=== PATIENT | female | born 1945 | race Caucasian/White ===

== ENCOUNTER → 2019-06-03 | Day surgery (SDC) | payer MEDICARE, OTHER ==
[~2019-06-03] MED LIST: Acetaminophen TAB* 325 MG ONE; Buffered Lidocaine 1% SYRIN* 1 ML/SYRINGE INTRADERM ONE; Bupivacaine 0.25% SDV PF* 10 ML VIAL INJ ONE; Ibuprofen TAB* 600 MG ONE; Lactated Ringers 1000 ML Bag* 1,000 ML IV SCH; Lidocaine 2% PF * 5 ML VIAL ONE; Naloxone* 0.4 MG/ML 1 ML VIAL IV PRN; Ondansetron INJ* 2 MG/ML VIAL IV PRN; Propofol* 10 MG/ML 20 ML BTL ONE; ROPIVACAINE 5 MG/ML 30 ML BTL (0.5%) ONE; Sodium Citrate/Citric Acid* 15 ML UDC ONE; Sodium Citrate/Citric Acid* 15 ML UDC PO ONE; ceFAZolin 2 GM in NS PREMIX(*) 2 GM/100 ML BAG IVPB ONE; fentaNYL* 50 MCG/ML 2 ML VIAL (100 MCG VIAL) IV PRN; fentaNYL* 50 MCG/ML 2 ML VIAL (100 MCG VIAL) ONE
--- NOTE | 2019-06-03 14:36 | OP ---
Operative Report - Blank - Operative Report Date of Operation: 06/03/19 Note: PATIENT: Fani Peñaloza DATE OF : 1945 DATE OF SURGERY: 06/03/2019 SURGEON: Jarad Brewster MD POLY PACKER AND HEAT SEALER: TINY Downey, whos assistance was necessary for positioning, retraction, help with instrumentation, and closure. ANESTHESIOLOGIST: Dr. Davidson PREOPERATIVE DIAGNOSIS: Left foot first, second and third painful, rigid claw toes POSTOPERATIVE DIAGNOSIS: Left foot first, second and third painful, rigid claw toes OPERATION: 1. Left hallux interphalangeal joint fusion 2. Left 2nd and 3rd claw corrections with PIP resection arthroplasties ANESTHESIA: General IMPLANTS: Arthrex 4.0mm cannulated screw, 0.045 k-wires x2 TOURNIQUET TIME: Less than 1 hour with a sterile calf tourniquet SPECIMENS: none ESTIMATED BLOOD LOSS: minimal COMPLICATIONS: none STATUS: Stable from the operating room to the recovery room and then home INDICATIONS FOR PROCEDURE: Fani has developed painful, rigid 1-3 claw toes on the left foot. Both operative and non-operative treatment alternatives were reviewed. Further, the nature and risks of surgery were reviewed in careful detail. Our discussions regarding the risks of surgery included, but were not limited to, infection, wound problems, nerve injury, neuroma, RSD, persistent symptoms, recurrent deformity, floating toe, nonunion, malunion, fracture, loss of toe, blood clot, need for further surgery, failure of the surgery, and even the remote chance of catastrophic complication, including loss of limb. DESCRIPTION OF PROCEDURE: The patient was seen in the preoperative holding unit and informed written consent was obtained. The appropriate extremity was marked. The patient was then brought to the operating room and carefully positioned on the operating room table. Anesthesia was induced. All bony prominences were padded with great care. A chlorhexidine based pre-scrub was performed followed by a chloraprep prep and drape in standard sterile fashion. A surgical safety pause was then conducted in which we confirmed the appropriate patient, extremity, planned procedure, availability of equipment, indication and administration of prophylactic antibiotics, and DVT prophylaxis in the form of a compression boot on the non-surgical extremity. I began with an Esmarch exsanguination of limb and placement of a calf Esmarch tourniquet. I made an incision over the hallux IP joint. I exposed the joint in a subperiosteal manner. I then used a small oscillating saw blade to remove the distal end of the proximal phalanx and the proximal end of the distal phalanx. I then placed a 4.0 mm cannulated screw across the joint to hold it well fixed. There was good bone apposition. An incision was made over the 2nd toe PIP joint and taken down to the level of bone and joint. The collateral ligaments were released on both sides. I then used a small oscillating saw to osteotomize the distal aspect of the proximal phalanx. This was then excised. I then placed a 0.045 K wire through the toe in an antegrade/retrograde fashion. The resection and pin placement was then confirmed with fluoroscopy. The toe sat nice and straight clinically. An incision was made over the 3rd toe PIP joint and taken down to the level of bone and joint. The collateral ligaments were released on both sides. I then used a small oscillating saw to osteotomize the distal aspect of the proximal phalanx. This was then excised. I then placed a 0.045 K wire through the toe in an antegrade/retrograde fashion. The resection and pin placement was then confirmed with fluoroscopy. The toe sat nice and straight clinically. The wounds were then copiously irrigated and meticulously closed in layers utilizing 3-0 Monocryl and 4-0 Nylon. A sterile dressing was then applied. The patient was then awakened from anesthesia and transferred to the recovery room in stable condition. There were no complications. All needle and sponge counts were correct at the end of the case. ATTESTATION: I attest I was present and scrubbed and performed the critical portions of the procedure myself. POSTOPERATIVE PLAN: Heel weightbearing and we will plan on 6 weeks with the k- wire.
[2019-06-03 15:58] VITALS: BP 154/77
== END | disposition home or self-care (01) ==
LOC: OR 10:18
PROVIDERS: ATTEND Orthopaedic Surgery
DX: M20.5X2 Other deformities of toe(s) (acquired), left foot (principal); Z68.35 Body mass index [BMI] 35.0-35.9, adult; E03.9 Hypothyroidism, unspecified; G20 Parkinson's disease; R03.0 Elevated blood-pressure reading, without diagnosis of hypertension
CPT/HCPCS: 76000; A9270-GY; C1713; C1776; J0690; J2704; J2795; J3010; J3490

== ENCOUNTER 2019-10-18 15:33 | Inpatient (IN) | payer MEDICARE ==
[2019-10-18] MEDS ORDERED: Ondansetron ODT TAB* 4 MG PO PRN (15:35)
[2019-10-18] MEDS ORDERED: Ondansetron INJ* 2 MG/ML VIAL IV PRN (15:35)
[2019-10-18] MEDS ORDERED: Morphine INJ* 2 MG/ML 1 ML SYRINGE (TWO MG - NEW SYRINGE VERSION) IV PRN (15:35)
[2019-10-18] MEDS ORDERED: diPHENhydraMINE PO* 25 MG PO PRN (15:35)
[2019-10-18] MEDS ORDERED: diPHENhydraMINE IV* 50 MG/ML 1 ml VIAL (BENADRYL) IV PRN (15:35)
[2019-10-18] MEDS ORDERED: oxyCODONE TAB* 5 MG TAB PO PRN ×2 (15:35)
[2019-10-18] MEDS ORDERED: Cyclobenzaprine TAB* 10 MG PO PRN (15:35)
[2019-10-18] MEDS ORDERED: traMADol TAB* 50 MG PO PRN (15:35)
[2019-10-18] MEDS ORDERED: Magnesium Hydroxide LIQ* 30 ML UDC PO PRN (15:35)
[2019-10-18] MEDS ORDERED: Vancomycin per Pharmacy* NOTE FOLLOW UP SCH (16:00)
--- OUTSIDE RECORDS SUMMARY | 2019-10-18 16:17 | XMS REPORT | Continuity of Care Document ---
:1945 External Reference #:[id number] Author Name Jarad Brewster MD (transmitted by agent of provider Dionne Perez) Address [address] [place] [address] Care Team Providers Name Role Phone No Maloney DO - Internal Care Team Information Workers Compensation Analyst [phone] Medicine Problems Active Problems Provider Date Cellulitis of left lower limb Jarad Brewster MD Onset: 10/18/2019 Pain due to internal orthopedic prosthetic Jarad Brewster MD Onset: 2019 devices, implants and grafts, initial encounter Other specified congenital deformities of feet Jarad Brewster MD Onset: 05/03 Social History Type Date Description Comments Sex Unknown ETOH Use Rarely consumes alcohol Tobacco Use Start: Unknown Patient has never smoked Smoking Status Reviewed: 10/18/19 Patient has never smoked Exercise Type/Frequency Exercises sporadically Allergies, Adverse Reactions, Alerts Active Allergies Reaction Severity Comments Date Nalbuphine 05/03/2019 Butorphanol 05/03/2019 Medications Active Medications SIG Qnty Indications Ordering Provider Date Duloxetine HCL Take 1 Capsule Unknown 30mg Caps DR By Mouth Every Part Day Pramipexole Take 1 Tablet By Unknown Dihydrochloride Mouth Twice 0.5mg Tablets Daily Celecoxib Unknown 100mg Capsules Gabapentin Unknown 300mg Capsules Carbidopa-Levodopa Take 1 Tablet By Unknown 25-100mg Mouth Three Tablets Times Daily Stool Softener Unknown History Medications Keflex 1 tab by mouth 28caps Jarad Brewster MD 06/16/2019 - 500mg Capsules four times a day 08/10/2019 Oxycodone HCL 1 tab by mouth 30tabs Jarad Brewster MD 06/03/2019 - 5mg every 4-6 hours 08/10/2019 Tablets as needed for pain Immunizations Description No Information Available Vital Signs Date Vital Result Comment 10/18/2019 2:40pm Height 68 inches 5'8" Heart Rate 70 /min BP Systolic 140 mmHg BP Diastolic 80 mmHg Respiratory Rate 20 /min Body Temperature 97.3 F Pain Level 5 08/11/2019 2:50pm Height 68 inches 5'8" Weight 230.00 lb Heart Rate 69 /min Respiratory Rate 18 /min Body Temperature 97.8 F Pain Level 0 BMI (Body Mass Index) 35.0 kg/m2 Results Description No Information Available Procedures Date Code Description Status 06/03/2019 98942 Arthrodesis Great Toe IP JT Completed 06/03/2019 64462 Arthrodesis Great Toe IP JT Completed 06/03/2019 82020 Correction Hammertoe Completed 06/03/2019 04490 Correction Hammertoe Completed 06/03/2019 04203 Correction Hammertoe Completed 06/03/2019 20143 Correction Hammertoe Completed Medical Devices Description No Information Available Encounters Type Date Location Provider Dx Diagnosis Office Visit 05/03/2019 [facility] Jarad Brewster, M21.532 Acquired 3:00p at [place] clawfoot, left foot Assessments Date Code Description Provider 10/18/2019 T84.84xA Pain due to internal orthopedic prosthetic Jarad Brewster MD devices, implants and grafts, initial encounter 10/18/2019 L03.116 Cellulitis of left lower limb Jarad Brewster MD 08/11/2019 M20.5x2 Other deformities of toe(s) (acquired), left Jarad Brewster MD foot 08/11/2019 M21.532 Acquired clawfoot, left foot Jarad Brewster MD 07/16/2019 M20.5x2 Other deformities of toe(s) (acquired), left Jarad Brewster MD foot 07/16/2019 M21.532 Acquired clawfoot, left foot Jarad Brewster MD 06/23/2019 M20.5x2 Other deformities of toe(s) (acquired), left Jarad Brewster MD foot 06/23/2019 Z98.890 Other specified postprocedural states Jarad Brewster MD 06/16/2019 M20.5x2 Other deformities of toe(s) (acquired), left Jarad Brewster MD foot 06/16/2019 M21.532 Acquired clawfoot, left foot Jarad Brewster MD 06/16/2019 Z98.890 Other specified postprocedural states Jarad Brewster MD 06/03/2019 M20.5x2 Other deformities of toe(s) (acquired), left ANTIONETTE Downey foot 06/03/2019 M20.5x2 Other deformities of toe(s) (acquired), left Jarad Brewster MD foot 05/28/2019 M21.532 Acquired clawfoot, left foot Jarad Brewster MD 05/03/2019 M21.532 Acquired clawfoot, left foot Jarad Brewster MD Plan of Treatment Future Appointment(s):10/21/2019 4:15 pm - ANTIONETTE Downey at [facility] at [facility]/21/2019 4:15 pm - Jarad Brewster MD at [facility] at [facility]/18/2019 - Jarad Brewster MDT84.84xA Pain due to internal orthopedic prosthetic devices, implants and grafts, initial encounterFollow up:Follow Up: hospital nuarfF10.116 Cellulitis of left lower limb Functional Status Description No Information Available Mental Status Description No Information Available Referrals Description No Information Available
--- OUTSIDE RECORDS SUMMARY | 2019-10-18 16:18 | XMS REPORT | Summary of Care ---
:1945 Author Organization [facility] Address [address] [place] [address] Care Team Providers Name Role Phone No Maloney MD Primary Care Provider Reason for Visit Reason Comments New Patient Per Dr. Matthew, Acute Kidney injury, decreased kidney function. Encounter Details Date Type Department Care Team Description 09/17/2019 Office Visit [facility] Fermin Paris, LAURA (acute kidney injury) ([facility]) (Primary Dx); [address] Fuentes DO Non-traumatic rhabdomyolysis; [place] [address] Osteoarthritis, unspecified osteoarthritis type, unspecified site; [phone] [place] [address] Parkinson's disease ([facility]) [phone] Allergies Active Allergy Reactions Severity Noted Date Comments Cefoxitin Other High 04/19/2015 thrombocytopenia Latex Rash 04/19/2015 Wkvjbazoqj-Yeoulzpkbf-Dcatskuwwy Other High 04/19/2015 thrombocytopenia Phenergan Plain Other High 04/19/2015 thrombocytopenia Butorphanol Other High 04/19/2015 thrombocytopenia Zantac Other High 04/19/2015 thrombocytopenia documented as of this encounter (statuses as of 09/17/2019) Medications Medication Sig Dispensed Refills Start Date End Date Status pramipexole (MIRAPEX) Take 0.5 mg by 0 Active 0.5 MG Oral Tab mouth EVERY BEDTIME. levothyroxine Take 2 Tabs by 180 Tab 5 11/20/2017 Active (SYNTHROID) 112 MCG Oral mouth BEFORE Tab BREAKFAST. Wait 30 min before eating Additional information Patient taking differently: 175 mcg Oral PRE BREAKFAST, Wait 30 min before eating, Reported on 09/17/2019 11:01 AM acetaminophen (TYLENOL) Take 2 Tabs by 120 Tab 0 03/11/2018 Active 325 MG Oral Tab mouth EVERY FOUR HOURS NEEDED for Pain or Fever. sennosides (SENOKOT) 8.6 Take 1 Tab by 120 Tab 0 03/11/2018 Active MG Oral Tab mouth TWICE DAILY. duloxetine (CYMBALTA) 30 Take 1 Cap by 60 Cap 0 03/11/2018 Active MG Oral CAPSULE ENTERIC mouth DAILY. COATED PARTICLES pantoprazole (PROTONIX) Take 40 mg by 0 Active 40 MG Oral Tab EC mouth DAILY. quetiapine (SEROQUEL) 25 Take 25 mg by 0 Active MG Oral Tab mouth EVERY BEDTIME. metoprolol (LOPRESSOR) Take 50 mg by 0 Active 50 MG Oral Tab mouth TWICE DAILY. cephalexin discharge Take 500 mg by 0 Active (KEFLEX) 500 MG Oral Cap mouth TWICE DAILY. carbidopa-levodopa Take 1 Tab by 0 Active (SINEMET) 25-100 MG Oral mouth THREE TIMES Tab DAILY. mirtazapine (REMERON) 15 Take 15 mg by 0 Active MG Oral Tab mouth EVERY BEDTIME. gabapentin (NEURONTIN) Take 300 mg by 0 09/17/2019 Discontinued 100 MG Oral mouth THREE TIMES CapIndications: DAILY. Insomnia, nerve pain celeCOXIB (CELEBREX) 100 Take 1 Cap by 120 Cap 0 03/11/2018 09/17/2019 Discontinued MG Oral Cap mouth TWICE DAILY. Melatonin 3 MG Oral Cap Take by mouth. 0 09/17/2019 Discontinued documented as of this encounter (statuses as of 09/17/2019) Active Problems Problem Noted Date Parkinson's disease 04/18/2018 Adult failure to thrive syndrome 04/18/2018 Hospital admission due to social situation 04/18/2018 Thoracic compression fracture, sequela 04/18/2018 Anxiety and depression Secondary hypothyroidism Overview: following thyroidectomy Lumbar spinal stenosis documented as of this encounter (statuses as of 09/17/2019) Resolved Problems Problem Noted Date Resolved Date Parkinson disease 03/10/2018 04/18/2018 Spinal stenosis at L4-L5 level 03/10/2018 04/18/2018 Weakness of both lower extremities 03/10/2018 04/18/2018 Compression fracture of body of thoracic vertebra 03/09/2018 04/18/2018 Back pain 03/09/2018 04/18/2018 Parkinson disease 09/22/2013 04/18/2018 Obesity 04/18/2018 Peripheral neuropathy 04/18/2018 documented as of this encounter (statuses as of 09/17/2019) Social History Tobacco Use Types Packs/Day Years Used Date Never Smoker Smokeless Tobacco: Never Used Alcohol Use Drinks/Week oz/Week Comments Yes rarely Sex Assigned at Date Recorded Not on file Job Start Date Occupation Industry Not on file Not on file Not on file Travel History Travel Start Travel End No recent travel history available. documented as of this encounter Last Filed Vital Signs Vital Sign Reading Time Taken Comments Blood Pressure 132/76 09/17/2019 11:05 AM EST Pulse 50 09/17/2019 11:05 AM EST Temperature - - Respiratory Rate - - Oxygen Saturation 98% 09/17/2019 11:05 AM EST Inhaled Oxygen Concentration - - Weight 116.6 kg (257 lb) 09/17/2019 11:05 AM EST Height 172.7 cm (5' 8") 09/17/2019 11:05 AM EST Body Mass Index 39.08 09/17/2019 11:05 AM EST documented in this encounter Progress Notes Fermin Paris, DO - 09/17/2019 10:50 AM EST PATIENT: Fani Peñaloza : 1945 DATE OF SERVICE: 09/17/2019 CHIEF COMPLAINT: Chief Complaint Patient presents with New Patient Per Dr. Matthew, Acute Kidney injury, decreased kidney function. Subjective HISTORY OF PRESENT ILLNESS: Fani Peñaloza is a 73-y.o. female. HPI 73-year-old female presenting for evaluation of acute kidney injury. The patient was recently founddown at home and was hospitalized [facility] at [facility]. She was found to have acute kidney injury with a creatinine of over 3 and a CK level of greater than 20,000. She was treated with IV fluids approximately 16 to 17 L of isotonic fluids was provided to her. She had some mild volume overload at the time. Her creatinine level had continue to worsen and that is when she was referred to nephrology for evaluation. Reviewing her creatinine levels over the last week she has had a steady decline in her creatinine from 3.1 down to 2.0 mg/dL on September 13, 2019. Her fluid status is also improved per the patient. Patient has a past medical history of anxiety, Parkinson's disease, hypothyroidism status post complete thyroidectomy, osteoarthritis, obesity. Denies sob, rashes, hematuria, dysuria, tissue passage, flank pain, epistaxis, hoarseness, hemoptysis, abdominal pain, orthopnea, PND, CP, N/V, metallic taste, positional chest pain, LE edema, generalized edema, headache, change in vision, or neuro deficits. Past Medical History: Diagnosis Date Anxiety and depression History of hyperthyroidism s/p complete thyroidectomy Lumbar spinal stenosis Obesity Parkinson disease (HCC) 2013 Secondary hypothyroidism following thyroidectomy Family History Problem Relation Age of Onset MS Mother Cancer Father stomach. age 47 Diabetes Sister No Known Problems Daughter No Known Problems Son Current Outpatient Medications Medication Sig acetaminophen (TYLENOL) 325 MG Oral Tab Take 2 Tabs by mouth EVERY FOUR HOURS NEEDED for Pain or Fever. carbidopa-levodopa (SINEMET) 25-100 MG Oral Tab Take 1 Tab by mouth THREE TIMES DAILY. cephalexin discharge (KEFLEX) 500 MG Oral Cap Take 500 mg by mouth TWICE DAILY. duloxetine (CYMBALTA) 30 MG Oral CAPSULE ENTERIC COATED PARTICLES Take 1 Cap by mouth DAILY. levothyroxine (SYNTHROID) 112 MCG Oral Tab Take 2 Tabs by mouth BEFORE BREAKFAST. Wait 30 minbefore eating (Patient taking differently: Take 175 mcg by mouth BEFORE BREAKFAST. Wait 30 min before eating) metoprolol (LOPRESSOR) 50 MG Oral Tab Take 50 mg by mouth TWICE DAILY. mirtazapine (REMERON) 15 MG Oral Tab Take 15 mg by mouth EVERY BEDTIME. pantoprazole (PROTONIX) 40 MG Oral Tab EC Take 40 mg by mouth DAILY. pramipexole (MIRAPEX) 0.5 MG Oral Tab Take 0.5 mg by mouth EVERY BEDTIME. quetiapine (SEROQUEL) 25 MG Oral Tab Take 25 mg by mouth EVERY BEDTIME. sennosides (SENOKOT) 8.6 MG Oral Tab Take 1 Tab by mouth TWICE DAILY. No current facility-administered medications for this visit. Allergies Allergen Reactions Cefoxitin Other thrombocytopenia Nubain [Psnybibxim-Louwsscqxn-Ikyojznctr] Other thrombocytopenia Phenergan Plain Other thrombocytopenia Stadol [Butorphanol] Other thrombocytopenia Zantac Other thrombocytopenia Latex Rash Social History Socioeconomic History Marital status: Spouse name: Not on file Number of children: Not on file Years of education: Not on file Highest education level: Not on file Occupational History Not on file Social Needs Financial resource strain: Not on file Food insecurity Worry: Not on file Inability: Not on file Transportation needs Medical: Not on file Non-medical: Not on file Tobacco Use Smoking status: Never Smoker Smokeless tobacco: Never Used Substance and Sexual Activity Alcohol use: Yes Comment: rarely Drug use: No Sexual activity: Never Lifestyle Physical activity Days per week: Not on file Minutes per session: Not on file Stress: Not on file Relationships Social connections Talks on phone: Not on file Gets together: Not on file Attends scientologist service: Not on file Active member of club or organization: Not on file Attends meetings of clubs or organizations: Not on file Relationship status: Not on file Intimate partner violence Fear of current or ex partner: Not on file Emotionally abused: Not on file Physically abused: Not on file Forced sexual activity: Not on file Other Topics Concern Not on file Social History Narrative Not on file REVIEW OF SYSTEMS: Review of Systems Constitutional: Negative for chills, fever, malaise/fatigue and weight loss. HENT: Negative for congestion, nosebleeds, sinus pain, sore throat and tinnitus. Eyes: Negative for blurred vision, double vision and redness. Respiratory: Negative for cough, hemoptysis and shortness of breath. Cardiovascular: Negative for chest pain, palpitations, orthopnea, claudication, leg swelling and PND. Gastrointestinal: Negative for abdominal pain, blood in stool, constipation, diarrhea, heartburn, melena, nausea and vomiting. Genitourinary: Negative for dysuria, flank pain, hematuria and urgency. Musculoskeletal: Negative for myalgias and neck pain. Skin: Negative for itching and rash. Neurological: Negative for dizziness, tremors, focal weakness, weakness and headaches. Endo/Heme/Allergies: Negative for polydipsia. Does not bruise/bleed easily. Psychiatric/Behavioral: Negative for depression. The patient is not nervous/ anxious. Objective PHYSICAL EXAM: VITALS: BP 132/76 (BP Location: Left arm, Patient Position: Sitting) | Pulse 50 | Ht 5' 8" (1.727m) | Wt 257 lb (116.6 kg) | SpO2 98% | BMI 39.08 kg/m Body mass index is 39.08 kg/m. Physical Exam Constitutional: General: She is not in acute distress. Appearance: She is well-developed. HENT: Head: Normocephalic and atraumatic. Eyes: General: No scleral icterus. Conjunctiva/sclera: Conjunctivae normal. Pupils: Pupils are equal, round, and reactive to light. Neck: Musculoskeletal: Neck supple. Vascular: No JVD. Cardiovascular: Rate and Rhythm: Normal rate and regular rhythm. Heart sounds: No murmur. No friction rub. No gallop. Pulmonary: Effort: Pulmonary effort is normal. Breath sounds: No wheezing or rales. Chest: Chest wall: No tenderness. Abdominal: General: Bowel sounds are normal. There is no distension. Palpations: Abdomen is soft. Tenderness: There is no abdominal tenderness. There is no guarding or rebound. Musculoskeletal: General: No tenderness. Skin: Capillary Refill: Capillary refill takes less than 2 seconds. Coloration: Skin is not pale. Findings: No rash. Neurological: Mental Status: She is alert and oriented to person, place, and time. Comments: Non--focal, no asterixis, pill rolling tremor ASSESSMENT / IMPRESSION: 73-year-old female presenting for evaluation of acute kidney injury secondary to rhabdomyolysis after being found down on the ground for greater than 10 hours. Her creatinine level is improving. Recommend weekly renal panels for 4 weeks and then once monthly for 3 months. I will evaluate her once again in approximately 8 to 10 weeks in [place]. Need to see what her kidney function settles out outat 3 months post identification of acute kidney injury to see there is any residual chronic kidney disease that is present. ICD-9-CM ICD-10-CM 1. LAURA (acute kidney injury) ([facility]) 584.9 N17.9 RENAL FUNCTION PANEL 2. Non-traumatic rhabdomyolysis 728.88 M62.82 3. Osteoarthritis, unspecified osteoarthritis type, unspecified site 715.90 M19.90 4. Parkinson's disease ([facility]) 332.0 G20 Plan 1. Weekly renal panel x4 weeks, followed by monthly renal panels x3 months 2. Renally adjust Rx for current creatinine clearance given her improving kidney function 3. Avoid NSAIDs and other nephrotoxic agents 4. continue current antihypertensive regimen 5. Low-sodium less than 2000 mg/day diet Follow-up in 8 to 10 weeks in [place]. Author: Fermin Paris DO 09/17/2019 11:30 documented in this encounter Plan of Treatment Date Type Specialty Care Team Description 12/07/2019 Office Visit Nephrology Fermin Paris DO [address] [place] [address] [phone] Name Type Priority Associated Diagnoses Order Schedule RENAL FUNCTION PANEL Lab Routine LAURA (acute kidney injury) Every 4 Weeks for 6 (HCC) Occurrences starting 09/17/2019 until 09/17/2020 Health Maintenance Due Date Last Done Comments MEDICARE ANNUAL WELLNESS VISIT 1945 DTaP/Tdap/Td Vaccines (1 - 1957 Tdap) DEPRESSION SCREENING 1958 HIV SCREENING 1961 MAMMOGRAM (SCREENING) 1986 Colonoscopy 1996 ZOSTER IMMUNIZATION SERIES (1 1996 of 2) FALL RISK ASSESSMENT 2011 OSTEOPOROSIS SCREENING 2011 PNEUMOCOCCAL 65+YRS (1 of 2 - 2011 PCV13) INFLUENZA VACCINE (#1) 2019 LIPID DISORDER SCREENING 11/14/2022 11/14/2017, 01/18/2004, 12/21/2002 HEPATITIS C SCREENING Completed 03/11/2018 HEPATITIS A IMMUNIZATION Aged Out No longer eligible based SERIES on patient's age to complete this topic HPV IMMUNIZATION SERIES Aged Out No longer eligible based on patient's age to complete this topic MENINGOCOCCAL VACCINE IMM Aged Out No longer eligible based on patient's age to complete this topic documented as of this encounter Results Not on filedocumented in this encounter Visit Diagnoses Diagnosis LAURA (acute kidney injury) (HCC) Acute kidney failure, unspecified Non-traumatic rhabdomyolysis Osteoarthritis, unspecified osteoarthritis type, unspecified site Parkinson's disease (HCC) Paralysis agitans documented in this encounter Insurance Payer Benefit Plan / Subscriber ID Effective Dates Phone Address Type Group UHC MEDICARE [employer] xxxxxxxxx 2016-Present [facility] AD[facility] MEDICARE ADVANTAGE (Work) documented as of this encounter Advance Directives Code Status Date Activated Date Inactivated Comments Full Code 03/09/2018 3:55 PM 03/11/2018 3:44 PM Does patient have decision making capacity? yes Order discussed with: Patient I discussed all options and patient/surrogate requested and agreed to: Full Code
[2019-10-18 17:05] LABS: ABS Eosinophils 0.1 10^3/ul (0-0.6); ABS Lymphocytes 1.2 10^3/ul (1.0-4.8); ABS Monocytes 0.4 10^3/ul (0-0.8); Eosinophil % 2.2 %; Hematocrit 32 % (35-47); Hemoglobin 10.9 g/dL (12.0-16.0); Lymphocyte % 20.4 %; Mean Corpuscular HGB Conc 34 g/dL (31-36); Mean Corpuscular Hemoglobin 32 pg (27-31); Mean Corpuscular Volume 94 fL (80-97); Mean Platelet Volume 6.8 fL (7.4-10.4); Nucleated Red Blood Cells % 0.1; Platelet Count 281 10^3/uL (150-450); Red Blood Count 3.41 10^6 /uL (3.70-4.87); Red Cell Distribution Width 14 % (10-15); White Blood Count 5.8 10^3/uL (3.5-10.8)
[2019-10-18 17:22] LABS: EGFR African American 69.1 (>60); EGFR Non-African American 57.1 (>60); Potassium 4.2 mmol/L (3.5-5.0)
[2019-10-18] MEDS: Acetaminophen TAB* 325 MG PO SCH (17:28)
[2019-10-18] MEDS ORDERED: Vancomycin 1500 MG IV - x ONCE IVPB ONE ×2 (18:00)
[2019-10-18 18:16] LABS: Erythrocyte Sed Rate 29 mm/Hr (0-29)
[2019-10-18] MEDS: Pramipexole TAB* 0.5 MG PO SCH (21:20)
[2019-10-18] MEDS: Docusate CAP* 100 MG PO SCH (21:20)
[2019-10-18] MEDS: Magnesium Hydroxide LIQ* 30 ML UDC PO SCH (21:21)
[2019-10-18] MEDS: Heparin VIAL(*) 5000 UNITS/ML VIAL (FIVE THOUSAND) SUBCUT SCH (21:21)
[2019-10-19] MEDS: Vancomycin(*) 1,000 MG in NS 0.9% 250 ML* 250 ML IV SCH ×3 (01:52→22:12)
[2019-10-19] MEDS: Acetaminophen TAB* 325 MG PO SCH ×3 (01:55→17:44)
[2019-10-19] MEDS: Levothyroxine TAB* 100 MCG TAB PO SCH (05:58)
[2019-10-19] MEDS: Gabapentin CAP(*) 300 MG PO SCH (08:37)
[2019-10-19] MEDS: DULoxetine DR CAP* 30 MG CAP.DR PO SCH (08:37)
[2019-10-19] MEDS: Pramipexole TAB* 0.5 MG PO SCH ×2 (08:37→22:11)
[2019-10-19] MEDS: Magnesium Hydroxide LIQ* 30 ML UDC PO SCH ×2 (08:41→22:11)
[2019-10-19] MEDS: Vitamin THERAPEUTIC TAB PO SCH (08:41)
[2019-10-19] MEDS: Heparin VIAL(*) 5000 UNITS/ML VIAL (FIVE THOUSAND) SUBCUT SCH ×2 (08:41→22:11)
[2019-10-19] MEDS: Docusate CAP* 100 MG PO SCH ×2 (08:42→22:11)
--- NOTE | 2019-10-19 10:26 | PN ---
Progress Note - Progress Note Date of Service: 10/19/19 SOAP: Subjective: []Pt seen at bedside. She denies feeling of cp, sob, dizziness, nausea. No LLE pain. Objective: []Gen: NAD LLE: Screw exposed from distal tip of great toe. Erythema spans mid-calf distally. There is a dime sized lesion mid-martinez weaping serous drainage. Able to flex/ extend ankle without pain. Sensation intact to light touch and cap refill less than two seconds distally. No palpable cords. Assessment: []Left great toe exposed hardware, cellulitis LLE Plan: []Heel WB LLE MICHA garza consulted for abx guidance Dopplar without evidence of lle DVT Plan for OR Vital Signs Temp 98.8 F 10/19/19 07:44 Pulse 83 10/19/19 07:44 Resp 16 10/19/19 08:37 BP 143/69 10/19/19 07:44 Pulse Ox 99 10/19/19 07:44 Intake & Output 10/18/19 10/19/19 10/19/19 18:59 06:59 18:59 Intake Total 1075 Output Total 250 350 Balance 825 -350 Weight 250 lb Intake: IVPB 575 ABX - PIPERACILLIN 575 Oral 500 Output: Urine 250 350 Other: Estimated Void Medium Large # Bowel Movements 0 # Voids 1 1 Laboratory Last Values WBC 5.8 10^3/uL (3.5-10.8) 10/18/19 16:58 RBC 3.41 10^6 /uL (3.70-4.87) L 10/18/19 16:58 Hgb 10.9 g/dL (12.0-16.0) L 10/18/19 16:58 Hct 32 % (35-47) L 10/18/19 16:58 MCV 94 fL (80-97) 10/18/19 16:58 MCH 32 pg (27-31) H 10/18/19 16:58 MCHC 34 g/dL (31-36) 10/18/19 16:58 RDW 14 % (10-15) 10/18/19 16:58 Plt Count 281 10^3/uL (150-450) 10/18/19 16:58 MPV 6.8 fL (7.4-10.4) L 10/18/19 16:58 Neut % (Auto) 69.1 % 10/18/19 16:58 Lymph % (Auto) 20.4 % 10/18/19 16:58 [place] % (Auto) 7.6 % 10/18/19 16:58 Eos % (Auto) 2.2 % 10/18/19 16:58 Baso % (Auto) 0.7 % 10/18/19 16:58 Absolute Neuts (auto) 4.0 10^3/ul (1.5-7.7) 10/18/19 16:58 Absolute Lymphs (auto) 1.2 10^3/ul (1.0-4.8) 10/18/19 16:58 Absolute Monos (auto) 0.4 10^3/ul (0-0.8) 10/18/19 16:58 Absolute Eos (auto) 0.1 10^3/ul (0-0.6) 10/18/19 16:58 Absolute Basos (auto) 0.0 10^3/ul (0-0.2) 10/18/19 16:58 Absolute Nucleated RBC 0.0 10^3/ul 10/18/19 16:58 Nucleated RBC % 0.1 10/18/19 16:58 ESR 29 mm/Hr (0-29) 10/18/19 16:58 INR (Anticoag Therapy) 1.00 (0.82-1.09) 10/18/19 16:58 Sodium 138 mmol/L (135-145) 10/18/19 16:58 Potassium 4.2 mmol/L (3.5-5.0) 10/18/19 16:58 Chloride 105 mmol/L (101-111) 10/18/19 16:58 Carbon Dioxide 29 mmol/L (22-32) 10/18/19 16:58 Anion Gap 4 mmol/L (2-11) 10/18/19 16:58 BUN 25 mg/dL (6-24) H 10/18/19 16:58 Creatinine 0.96 mg/dL (0.51-0.95) H 10/18/19 16:58 Est GFR ( Amer) 69.1 (>60) 10/18/19 16:58 Est GFR (Non-Af Amer) 57.1 (>60) 10/18/19 16:58 BUN/Creatinine Ratio 26.0 (8-20) H 10/18/19 16:58 Glucose 103 mg/dL (70-100) H 10/18/19 16:58 Calcium 10.0 mg/dL (8.6-10.3) 10/18/19 16:58 C-Reactive Protein 8.12 mg/L (<8.01) H 10/19/19 04:39
--- NOTE | 2019-10-19 14:37 | CONS ---
CONSULTATION REPORT: DATE OF ADMISSION: 10/18/19 DATE OF CONSULT: 10/19/19 PRIMARY CARE PROVIDER: Dr. No Maloney. PROVIDER REQUESTING CONSULTATION: TINY Durna CONSULTING SERVICE: Infectious Disease. PROVIDER: Yamil Rodriguez NP ATTENDING PROVIDER: Tito Yu MD * (DICTATED BY YAMIL RODRIGUEZ NP) REASON FOR CONSULTATION: Left foot infection with cellulitis and exposed hardware in the left first toe. IMPRESSION: 1. Left lower extremity cellulitis withe exposed hardware. The patient has a slightly elevated CRP. ESR is not elevated. She has no leukocytosis and afebrile. She had a venous Doppler study of the left leg with no overt signs of deep venous thrombosis. She has been vancomycin. Plans are for her to go the operating room on , 10/21/19, for removal of hardware. No cultures have been obtained. 2. Parkinson's disease. 3. Hypothyroidism. 4. Obesity, BMI 38. 5. Bilateral lower extremity lymphedema. RECOMMENDATIONS/PLAN: Recommend continuing vancomycin for now. Final recommendations will be based off of the culture results obtained in the operating room and the patient's clinical course. HISTORY OF PRESENT ILLNESS: Ms. Peñaloza is a 73-year-old female with past medical history significant for Parkinson's disease, hypothyroidism, who previously underwent a left hallux interphalangeal joint fusion and left second and third claw corrections with PIP resection arthroplasties on 06/03/[address] Jarad Brewster. The patient was doing well postoperatively and then she developed an open wound a few days ago in her left first toe. She also reports associated redness and swelling. She was seen in the clinic outpatient and was directed to the hospital for a direct admission in the setting of left foot cellulitis and exposed hardware. While in the hospital, she has been afebrile, no leukocytosis, with normal ESR, CRP at 8.12. The patient reports some continuation of tingling in her left leg and some decreased sensation. She states that she has chronic lesions to her bilateral legs from sun exposure and has seen a senior scheduler for this and uses an ointment. Additionally, she has some abrasions to bilateral knees after a fall. She denies fevers, chills, shortness of breath, cough, nausea, vomiting, diarrhea, joint pain, muscle pain, or urinary symptoms. No recent travel. PAST MEDICAL HISTORY: 1. Parkinson's disease. 2. Hypothyroidism. 3. Bilateral lower extremity lymphedema. PAST SURGICAL HISTORY: 1. Status post tonsillectomy. 2. Status post cholecystectomy. 3. Status post hysterectomy. 4. Status post D and C. 5. Status post thyroidectomy. 6. Status post left Achilles tendon lengthening. 7. Status post left hallux interphalangeal joint fusion and left second and third claw corrections with PIP resection arthroplasties on 06/03/19. MEDICATIONS: Home Medications: 1. Pramipexole 0.5 mg by mouth daily. 2. Gabapentin 300 mg by mouth daily. 3. Duloxetine 30 mg by mouth daily. 4. Carbidopa-levodopa 25-120 one tablet by mouth 3 times daily. 5. Ambien 5 mg by mouth daily at bedtime as needed for insomnia. 6. Seroquel 25 mg by mouth daily at bedtime. 7. Mirtazapine 15 mg by mouth daily at bedtime. 8. Levothyroxine 200 mcg by mouth daily. Hospital Medications: 1. Acetaminophen 975 mg by mouth every 8 hours. 2. Dulcolax suppository 10 mg per rectum daily as needed for constipation. 3. Flexeril 10 mg by mouth every 6 hours as needed for muscle spasms. 4. Benadryl 25 mg IV or p.o. every 6 hours as needed for itching. 5. Colace 100 mg by mouth twice daily. 6. Cymbalta 30 mg by mouth daily. 7. Gabapentin 300 mg by mouth daily. 8. Heparin sodium 5000 units subcutaneous every 12 hours. 9. Lactulose 30 mL by mouth twice daily as needed for constipation. 10. Levothyroxine 200 mcg by mouth every 6 hours. 11. Milk of magnesia 30 mL by mouth twice daily until movement followed by 30 mL by mouth every 6 hours as needed for constipation. 12. Morphine sulfate 2 mg IV every 4 hours as needed for pain. 13. Multivitamin 1 tablet by mouth daily. 14. Zofran 4 mg IV or p.o. every 6 hours as needed for nausea. 15. Oxycodone 5 to 10 mg by mouth every 4 hours as needed for pain. 15. Mirapex 0.5 mg by mouth twice daily. 16. Tramadol 50 mg by mouth every 6 hours as needed for pain. 17. Vancomycin 1000 mg IV every 8 hours. ALLERGIES: ADHESIVES, LATEX, STADOL, and NUBAIN. FAMILY HISTORY: Denies family history of recurrent or resistant infections, coronary artery disease, diabetes. Father with history of stomach carcinoma. SOCIAL HISTORY: Denies alcohol, tobacco, or recreational drug use. She reports that she did smoke for few years in her 20s. REVIEW OF SYSTEMS: I performed a 10-point review of systems. All the pertinent positive and negatives are mentioned in the history of present illness. The remaining review of systems are negative. PHYSICAL EXAM: Vital Signs: Temperature 98.8, heart rate 83, respiratory rate 18, O2 sat 99% on room air, blood pressure 143/69. General Appearance: Alert, appears to be in no acute distress. Head: Normocephalic, atraumatic. ENT: Extraocular movements are intact. No subconjunctival hemorrhage. Moist mucous membranes. Neck: Supple. No lymphadenopathy. Neurological: Alert and oriented and moves all extremities. Cardiovascular: Regular rate and rhythm. S1 and S2 present. No murmurs, rubs or gallops heard. Respiratory: No accessory muscle use. Lungs are clear to auscultation. Abdomen: Bowel sounds present. Abdomen is soft, nontender, and nondistended. Extremities: There is bilateral lower extremity edema consistent with lymphedema. DP/PT pulses are 2 + and symmetric. Musculoskeletal: No clubbing or cyanosis noted. She exhibits good strength in all extremities. Psychological: Calm and cooperative. Skin: No rashes seen. Bilateral legs at the knees with superficial abrasions. Slight erythema. Bilateral shins with several lesions that the patient states these are from sun exposure and follows with Dermatology for these. Her left great toe on the distal aspect has a screw exposed. There is slight erythema on the left lower calf. Sensation is intact to light touch. No areas of induration. DIAGNOSTIC STUDIES/LAB DATA: Labs from 10/18/19: Sodium 138, potassium 4.2, chloride 105, CO2 of 29. BUN 25, creatinine 0.96, glucose 103. White blood cell count 5.8, hemoglobin 10.9, hematocrit 32, platelet count 281. CRP 8.12, ESR 29. See impression and recommendations outlined above. Recommendations have been discussed with TINY Virk. Thank you for asking us to see Ms. Peñaloza in consultation. The case has been discussed with my attending, Dr. Tito Yu, who agrees with the plan of care. Reviewed by YAMIL RODRIGUEZ, KARLI-Josy 10/21/19 1205 [id number]/[facility] #: [id number] MTDD
[2019-10-19] MEDS ORDERED: Vancomycin(*) 1,000 MG in NS 0.9% 250 ML* 250 ML IV SCH (20:00)
[2019-10-20] MEDS: Acetaminophen TAB* 325 MG PO SCH ×3 (00:51→17:34)
[2019-10-20] MEDS: Vancomycin(*) 1,000 MG in NS 0.9% 250 ML* 250 ML IV SCH ×3 (05:55→23:18)
[2019-10-20] MEDS: Levothyroxine TAB* 100 MCG TAB PO SCH (05:55)
[2019-10-20 07:00] LABS: ABS Eosinophils 0.2 10^3/ul (0-0.6); ABS Lymphocytes 1.3 10^3/ul (1.0-4.8); ABS Monocytes 0.4 10^3/ul (0-0.8); ABS Neutrophils 3.7 10^3/ul (1.5-7.7); Hematocrit 30 % (35-47); Hemoglobin 10.3 g/dL (12.0-16.0); Lymphocyte % 22.9 %; Mean Corpuscular HGB Conc 35 g/dL (31-36); Mean Corpuscular Hemoglobin 33 pg (27-31); Mean Corpuscular Volume 94 fL (80-97); Mean Platelet Volume 7.1 fL (7.4-10.4); Platelet Count 249 10^3/uL (150-450); Red Blood Count 3.13 10^6 /uL (3.70-4.87); Red Cell Distribution Width 14 % (10-15); White Blood Count 5.7 10^3/uL (3.5-10.8)
[2019-10-20 07:11] LABS: BUN/Creatinine Ratio 22.6 (8-20); C Reactive Protein 7.91 mg/L (<8.01); Calcium 9.5 mg/dL (8.6-10.3); EGFR African American 80.6 (>60); EGFR Non-African American 66.6 (>60); Potassium 4.2 mmol/L (3.5-5.0)
--- NOTE | 2019-10-20 08:17 | PN ---
Progress Note - Progress Note Date of Service: 10/20/19 SOAP: Subjective: []Pt seen at bedside. She feels well without complaints. Denies fever, chills, LLE pain, CP, SOB, dizziness. Objective: []Gen: NAD, appears well LLE: screw exposed tip of great toe. Erythema of lower leg lessened in severity , foot and lower leg edema has significantly decreased Assessment: []LLE cellulitis with exposed hardware Plan: []Hospitalist consulted today for medical optimization prior to removal of exposed screw in left great toe. Called outpt pharmacy for med list and nursing asked to update med rec as this appears incomplete There is a printed H&P done at our office in her paper chart Vital Signs Temp 97.5 F 10/20/19 11:13 Pulse 100 10/20/19 11:13 Resp 17 10/20/19 11:13 BP 149/59 10/20/19 11:13 Pulse Ox 99 10/20/19 11:13 Intake & Output 10/19/19 10/20/19 10/20/19 18:59 06:59 18:59 Intake Total 099 248 4561 Output Total 1050 600 400 Balance -281 277 755 Intake: IVPB 409 277 265 ABX - VANCOMYCIN 409 277 265 Oral 360 600 890 Output: Urine 1050 600 400 Other: Estimated Void Large Date of Last Bowel 10/20/19 Movement # Bowel Movements 1 Estimated Stool Amount Medium Large # Voids 2 Laboratory Last Values WBC 5.7 10^3/uL (3.5-10.8) 10/20/19 06:35 RBC 3.13 10^6 /uL (3.70-4.87) L 10/20/19 06:35 Hgb 10.3 g/dL (12.0-16.0) L 10/20/19 06:35 Hct 30 % (35-47) L 10/20/19 06:35 MCV 94 fL (80-97) 10/20/19 06:35 MCH 33 pg (27-31) H 10/20/19 06:35 MCHC 35 g/dL (31-36) 10/20/19 06:35 RDW 14 % (10-15) 10/20/19 06:35 Plt Count 249 10^3/uL (150-450) 10/20/19 06:35 MPV 7.1 fL (7.4-10.4) L 10/20/19 06:35 Neut % (Auto) 64.6 % 10/20/19 06:35 Lymph % (Auto) 22.9 % 10/20/19 06:35 [facility] % (Auto) 7.7 % 10/20/19 06:35 Eos % (Auto) 4.0 % 10/20/19 06:35 Baso % (Auto) 0.8 % 10/20/19 06:35 Absolute Neuts (auto) 3.7 10^3/ul (1.5-7.7) 10/20/19 06:35 Absolute Lymphs (auto) 1.3 10^3/ul (1.0-4.8) 10/20/19 06:35 Absolute Monos (auto) 0.4 10^3/ul (0-0.8) 10/20/19 06:35 Absolute Eos (auto) 0.2 10^3/ul (0-0.6) 10/20/19 06:35 Absolute Basos (auto) 0.0 10^3/ul (0-0.2) 10/20/19 06:35 Absolute Nucleated RBC 0.0 10^3/ul 10/20/19 06:35 Nucleated RBC % 0.0 10/20/19 06:35 ESR 29 mm/Hr (0-29) 10/18/19 16:58 INR (Anticoag Therapy) 1.00 (0.82-1.09) 10/18/19 16:58 Sodium 140 mmol/L (135-145) 10/20/19 06:35 Potassium 4.2 mmol/L (3.5-5.0) 10/20/19 06:35 Chloride 107 mmol/L (101-111) 10/20/19 06:35 Carbon Dioxide 31 mmol/L (22-32) 10/20/19 06:35 Anion Gap 2 mmol/L (2-11) 10/20/19 06:35 BUN 19 mg/dL (6-24) 10/20/19 06:35 Creatinine 0.84 mg/dL (0.51-0.95) 10/20/19 06:35 Est GFR ( Amer) 80.6 (>60) 10/20/19 06:35 Est GFR (Non-Af Amer) 66.6 (>60) 10/20/19 06:35 BUN/Creatinine Ratio 22.6 (8-20) H 10/20/19 06:35 Glucose 89 mg/dL (70-100) 10/20/19 06:35 Calcium 9.5 mg/dL (8.6-10.3) 10/20/19 06:35 C-Reactive Protein 7.91 mg/L (<8.01) 10/20/19 06:35
[2019-10-20] MEDS: Docusate CAP* 100 MG PO SCH ×2 (09:17→21:48)
[2019-10-20] MEDS: Vitamin THERAPEUTIC TAB PO SCH (09:17)
[2019-10-20] MEDS: Heparin VIAL(*) 5000 UNITS/ML VIAL (FIVE THOUSAND) SUBCUT SCH ×2 (09:17→21:49)
[2019-10-20] MEDS: Pramipexole TAB* 0.5 MG PO SCH ×2 (09:17→21:48)
[2019-10-20] MEDS: DULoxetine DR CAP* 30 MG CAP.DR PO SCH (09:17)
[2019-10-20] MEDS: Gabapentin CAP(*) 300 MG PO SCH (09:18)
[2019-10-20] MEDS: Magnesium Hydroxide LIQ* 30 ML UDC PO SCH ×2 (09:19→21:49)
[2019-10-20] MEDS ORDERED: Buffered Lidocaine 1% SYRIN* 1 ML/SYRINGE INTRADERM ONE (11:16)
--- NOTE | 2019-10-20 11:48 | CONS ---
HOSPITAL MEDICINE CONSULTATION REPORT: DATE OF CONSULT: 10/20/19 PROVIDER: Brielle Austin NP ATTENDING PHYSICIAN WHILE IN THE HOSPITAL: Dr. Jarad Brewster. CONSULTING PHYSICIAN: Dr. Fawad Sanchez (dictated by Brielle Austin NP). REASON FOR CONSULT: Co-management of chronic medical conditions. HISTORY OF PRESENT ILLNESS: Ms. Peñaloza is a 73-year-old female with a past medical history significant for Parkinson's and hypothyroid. Hospital Medicine was asked to see and evaluate the patient preoperatively for optimization for surgery. In brief, the patient had hardware that has eroded through the skin of her big toe and was admitted to have hardware removed and questionable infection. Please see dictated H and P from Dr. Jarad Brewster for complete details. 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 At that time, she did have hardware placed in the foot. The patient reports that she noticed that the screw was coming out of her left great toe and she had some drainage, so she was admitted to the hospital for further medical care. Hospital Medicine was asked to see and evaluate the patient preoperatively for medical optimization. PAST MEDICAL HISTORY: Significant for Parkinson's, hypothyroid, and lymphedema. PAST SURGICAL HISTORY: 1. Thyroidectomy. 2. Left foot surgery. 3. Tonsillectomy. 4. Hysterectomy. 5. Cholecystectomy. HOME MEDICATIONS: Include: 1. Celebrex 100 mg p.o. daily. 2. Mirapex 0.5 mg p.o. b.i.d. 3. Levothyroxine 175 mcg p.o. q.a.m. 4. Gabapentin 300 mg p.o. q.a.m. 5. Docusate 100 mg p.o. q.p.m. 6. Duloxetine DR cap 30 mg p.o. daily. 7. Carbidopa/levodopa 25/100 one tablet 3 times a day. ALLERGIES: 1. ADHESIVE. 2. LATEX. 3. BUTORPHANOL. 4. NALBUPHINE. 5. External allergies. 6. Nickel. REVIEW OF SYSTEMS: A 14-point review of systems was completed. All pertinent positives were mentioned in the HPI. PHYSICAL EXAM: General: At this time, Ms. Peñaloza is alert and oriented, sitting in her hospital room chair. She is in no acute distress. Vital Signs: Blood pressure 153/83, heart rate 77, respirations 17, O2 saturation 100% on room air, temperature was 97.4. HEENT: Head is atraumatic, normocephalic. Eyes: EOMs are intact. Sclerae anicteric and not pale. Oral mucosa is moist. Neck is supple. Lungs are clear to auscultation bilaterally. No wheezes, rales, or rhonchi. Cardiac: S1, S2. Regular rate and rhythm. No murmurs, rubs , or gallops. Abdomen is soft and nontender. Bowel sounds are present x4. Extremities: She is able to move all 4 extremities. She does have mild redness noted to her left foot. She does have a screw that is seen at the top of her left great toe. She does have various scabbed areas noted to bilateral lower extremities and abrasions to bilateral knees. Skin: See above. Neurologic: She is awake, alert, oriented x3. Speech is clear. Thought process is intact. There are no gross focal deficits. DIAGNOSTIC STUDIES/LAB DATA: WBCs are 5.7, RBCs 3.13, hemoglobin 10.3, hematocrit is 30, platelet count 249. INR is 1. Sodium 140, potassium 4.2, chloride 107, carbon dioxide was 31, anion gap was 2, BUN 19, creatinine 0.84, glucose was 89, and C-reactive protein was 7.91. She had an electrocardiogram, which showed sinus rhythm at a rate of 80. No ST or T-wave changes. She had a chest x-ray on 10/19/19, which showed pulmonary vascular congestion. She had a venous Doppler that showed no obvious DVT in the left lower extremity. IMPRESSION AND PLAN: Ms. Peñaloza is a 73-year-old female with a past medical history significant for Parkinson's, lymphedema and hypothyroid, who was admitted to [facility] by Dr. Brewster for exposed hardware in the left great toe needing operative management. Our recommendations are as follows: 1. Hardware exposure, left great toe. Management per Orthopedics. PT/OT per Orthopedics. Pain management per Orthopedics. At this time, the patient does not need any further surgical optimization prior to surgery. The patient has an RCRI score of 0, giving her a 3.9% 30-day risk of , myocardial infarction, or cardiac arrest. The patient is able to walk with her walker at home and do daily activities without development of chest pain or shortness of breath, so at this time there is no need for further optimization prior to surgery. 2. Parkinson's disease. The patient should continue on her carbidopa/levodopa as previously prescribed as well as her Mirapex. 3. Hypothyroid. The patient should continue on levothyroxine 175 mcg p.o. daily. 4. FEN: She can have a regular diet. 5. Code status: She is a full code. 6. DVT prophylaxis: As per Orthopedics. TIME SPENT: Time spent on this consultation was 45 minutes, greater than half that time was spent at the bedside reviewing events leading thus far to her hospitalization, performing physical exam, and reviewing my plan of care. I have discussed this with my attending, Dr. Fawad Sanchez; he is in agreement with my plan. BRIELLE AUSTIN, HEAD STOCK TRANSFER CLERK [id number]/[facility] #: [id number] JASEN
[2019-10-20] MEDS: Carbidopa/Levodop 25/100 MG TAB(*) PO SCH (19:35)
[2019-10-21] MEDS: Acetaminophen TAB* 325 MG PO SCH ×3 (01:16→17:21)
[2019-10-21] MEDS: Levothyroxine TAB* 175 MCG TAB PO SCH (05:46)
[2019-10-21] MEDS ORDERED: Lactated Ringers 1000 ML Bag* 1,000 ML IV SCH ×2 (06:00→15:43)
[2019-10-21] MEDS ORDERED: Vancomycin Trough Check NOTE FOLLOW UP ONE (06:00)
[2019-10-21] MEDS: Magnesium Hydroxide LIQ* 30 ML UDC PO SCH ×2 (08:30→20:12)
[2019-10-21] MEDS: Vancomycin(*) 1,000 MG in NS 0.9% 250 ML* 250 ML IV SCH ×3 (08:37→23:42)
[2019-10-21] MEDS: Gabapentin CAP(*) 300 MG PO SCH (08:39)
[2019-10-21] MEDS: Carbidopa/Levodop 25/100 MG TAB(*) PO SCH ×3 (08:39→20:12)
[2019-10-21] MEDS: Docusate CAP* 100 MG PO SCH ×2 (08:40→20:12)
[2019-10-21] MEDS: Vitamin THERAPEUTIC TAB PO SCH (08:40)
[2019-10-21] MEDS: Pramipexole TAB* 0.5 MG PO SCH ×2 (08:40→20:12)
[2019-10-21] MEDS: Heparin VIAL(*) 5000 UNITS/ML VIAL (FIVE THOUSAND) SUBCUT SCH (08:40)
[2019-10-21] MEDS: DULoxetine DR CAP* 30 MG CAP.DR PO SCH (08:40)
--- NOTE | 2019-10-21 10:15 | PN ---
Subjective Date of Service: 10/21/19 Interval History: Ms. Peñaloza states she is doing well today. She is planning for surgery this afternoon and has no questions at this time. She denies pain in the LE, but notes that she has paresthesias at L groet toe and plantar surface of the foot. She denies CP, SOB, fever/chills. She walks with a walker at baseline. No other complaints today. Objective Active Medications: Acetaminophen (Tylenol Tab*) 975 mg PO Q8H [facility] Last Admin: 10/21/19 01:16 Dose: 975 mg Bisacodyl (Dulcolax Supp*) 10 mg [place] DAILY PRN PRN Reason: CONSTIPATION Carbidopa/Levodopa (Sinemet 25/100 Tab(*)) 1 tab PO TID@0800,1400,2000 [facility] Last Admin: 10/21/19 08:39 Dose: 1 tab Cyclobenzaprine HCl (Flexeril Tab*) 10 mg PO Q6H PRN PRN Reason: SPASMS Diphenhydramine HCl (Benadryl Iv*) 25 mg IV Q6H PRN PRN Reason: PRURITIS Diphenhydramine HCl (Benadryl Po*) 25 mg PO Q6H PRN PRN Reason: PRURITIS Docusate Sodium (Colace Cap*) 100 mg PO BID [facility] Last Admin: 10/21/19 08:40 Dose: 100 mg Duloxetine HCl (Cymbalta Cap*) 30 mg PO QAM [facility] Last Admin: 10/21/19 08:40 Dose: 30 mg Gabapentin (Neurontin Cap(*)) 300 mg PO QAM [facility] Last Admin: 10/21/19 08:39 Dose: 300 mg Lactated Ringer's (Lactated Ringers 1000 Ml Bag*) 1,000 mls @ 125 mls/hr IV PER RATE [facility] Last Admin: 10/21/19 05:47 Dose: 125 mls/hr Vancomycin HCl 1,000 mg/ (Sodium Chloride) 250 mls @ 125 mls/hr IV 0000,1200 [facility] Lactulose (Lactulose*) 30 ml PO BID PRN PRN Reason: CONSTIPATION Levothyroxine Sodium (Synthroid Tab*) 175 mcg PO QAM@0600 [facility] Last Admin: 10/21/19 05:46 Dose: 175 mcg Magnesium Hydroxide (Milk Of Magnesia Liq*) 30 ml PO BID [facility] Last Admin: 10/21/19 08:30 Dose: Not Given Magnesium Hydroxide (Milk Of Magnesia Liq*) 30 ml PO Q6H PRN PRN Reason: CONSTIPATION Morphine Sulfate (Morphine Inj (Syringe))*) 2 mg IV Q4H PRN PRN Reason: Pain - Unrelieved Multivitamins (Theragran Tab*) 1 tab PO DAILY [facility] Last Admin: 10/21/19 08:40 Dose: 1 tab Ondansetron HCl (Zofran Inj*) 4 mg IV Q6H PRN PRN Reason: NAUSEA Ondansetron HCl (Zofran Odt Tab*) 4 mg PO Q6H PRN PRN Reason: NAUSEA Oxycodone HCl (Roxycodone Tab*) 10 mg PO Q4H PRN PRN Reason: Pain - Breakthrough Oxycodone HCl (Roxycodone Tab*) 5 mg PO Q4H PRN PRN Reason: PAIN - SEVERE Pharmacy Consult (Vancomycin Per Pharmacy*) 1 note FOLLOW UP .VANC PER PHARMACY [facility]; Protocol Pramipexole Dihydrochloride (Mirapex Tab*) 0.5 mg PO BID [facility] Last Admin: 10/21/19 08:40 Dose: 0.5 mg Tramadol HCl (Ultram*) 50 mg PO Q6HR PRN PRN Reason: PAIN - MODERATE Last Admin: 10/18/19 18:31 Dose: 50 mg Vital Signs: Temp Pulse Resp BP Pulse Ox 97.5 F 81 18 144/67 100 10/21/19 07:53 10/21/19 07:53 10/21/19 08:39 10/21/19 07:53 10/21/19 07:53 Oxygen Devices in Use Now: None Appearance: Ms. Altamirano is an obese, older white female who is sitting in chair with LLE elevated on a stool. She appears comfortable and in no acute distress. Breathing comfortably on room air. Eyes: No Scleral Icterus, PERRLA Ears/Nose/Mouth/Throat: NL Teeth, Lips, Gums, Clear Oropharnyx, Mucous Membranes Moist Neck: NL Appearance and Movements; NL JVP, Trachea Midline Respiratory: Symmetrical Chest Expansion and Respiratory Effort, Clear to Auscultation Cardiovascular: NL Sounds; No Murmurs; No JVD, RRR, - - b/l LE non-pitting edema , L>R Extremities: - - b/l LE with mild erythema and edema- chronic with h/o lymphedema; without signs of cellulitis. LLE great toe with protruding screw hardware; able to move all digits in b/l LE Neurological: Alert and Oriented x 3 Result Diagrams: 10/20/19 06:35 10/20/19 06:35 Microbiology and Other Data: Microbiology 10/18/19 16:52 Aerobic Blood Culture - Preliminary Blood Venous No Growth Day 2 Anaerobic Blood Culture - Preliminary No Growth Day 2 10/18/19 16:52 Aerobic Blood Culture - Preliminary Blood Venous No Growth Day 2 Anaerobic Blood Culture - Preliminary No Growth Day 2 Assess/Plan/Problems-Billing Assessment: 73yof PMHx hypothyroidism, PD, b/l LE lymphedema presents with L great toe hardware exposure. - Patient Problems (1) Exposed orthopaedic hardware Comment: -presents with L great toe hardware exposure, draiainge -pt is s/p surgical intervention 05/2019 -planned for surgery this afternoon -management per ortho team -continue pain management -continue vanco (2) Hypothyroidism Comment: -continue home levothyroxine (3) Parkinsons disease Comment: -continue home carbidopa/levodopa (4) DVT prophylaxis Comment: -per ortho; no chemoprophylaxis at this time, due to planned surgical intervention this afternoon (5) Full code status Status and Disposition: Inpatient. Discharge per primary team. The hospitalist team will sign off on Ms. Peñaloza at this time. Thank you for allowing us to participate in the care of this patient. Please do not hesitate to re-consult the hospitalist group as needed.
[2019-10-21] MEDS ORDERED: Midazolam* 1 MG/ML 2 ML VIAL (2 MG) ONE (15:05)
[2019-10-21] MEDS ORDERED: Bupivacaine 0.5%* 50 ML MDV VIAL ONE (15:19)
[2019-10-21] MEDS ORDERED: Propofol* 10 MG/ML 20 ML BTL ONE (15:55)
[2019-10-21] MEDS ORDERED: Lidocaine 2% PF * 5 ML VIAL ONE (15:55)
[2019-10-21] MEDS ORDERED: fentaNYL* 50 MCG/ML 2 ML VIAL (100 MCG VIAL) ONE (15:55)
[2019-10-21] MEDS ORDERED: fentaNYL* 50 MCG/ML 2 ML VIAL (100 MCG VIAL) IV PRN (15:58)
[2019-10-21] MEDS ORDERED: Ondansetron INJ* 2 MG/ML VIAL IV PRN (15:58)
[2019-10-21] MEDS ORDERED: Naloxone* 0.4 MG/ML 1 ML VIAL IV PRN (15:58)
--- NOTE | 2019-10-21 16:15 | OP ---
Operative Report - Blank - Operative Report Date of Operation: 10/21/19 Note: PATIENT: Fani Peñaloza DATE OF : 1945 DATE OF SURGERY: 10/21/2019 SURGEON: Jarad Brewster MD [employer] TECHNOLOGIST: TINY Virk, whos assistance was necessary for positioning, retraction, help with instrumentation, and closure. ANESTHESIOLOGIST: Dr. Hyatt PREOPERATIVE DIAGNOSIS: Left foot cellulitis with exposed hardware POSTOPERATIVE DIAGNOSIS: Left foot cellulitis with exposed hardware OPERATION: Left foot removal of hardware ANESTHESIA: MAC IMPLANTS: none TOURNIQUET TIME: None SPECIMENS: none ESTIMATED BLOOD LOSS: minimal COMPLICATIONS: none STATUS: Stable from the operating room to the recovery room. INDICATIONS FOR PROCEDURE: Fani had prior forefoot surgery and her screw in the hallux became exposed, and she developed a cellulitis. Both operative and non-operative treatment alternatives were reviewed. Further, the nature and risks of surgery were reviewed in careful detail. Our discussions regarding the risks of surgery included, but were not limited to, persistent or worsening infection, wound problems, nerve injury, neuroma, RSD, persistent symptoms, blood clot, need for further surgery, failure of the surgery, and even the remote chance of catastrophic complication. DESCRIPTION OF PROCEDURE: The patient was seen in the preoperative holding unit and informed written consent was obtained. The appropriate extremity was marked. The patient was then brought to the operating room and carefully positioned on the operating room table. Anesthesia was induced. All bony prominences were padded with great care. A chlorhexidine based pre-scrub was performed followed by a Betadine prep and drape in standard sterile fashion. A surgical safety pause was then conducted in which we confirmed the appropriate patient, extremity, planned procedure, availability of equipment, indication and administration of prophylactic antibiotics, and DVT prophylaxis in the form of a compression boot on the non-surgical extremity. I made an ellipsoid incision around the screw. I then used a Arthrex screwdriver to remove the screw in its entirety from the bone. No pus or infected-appearing tissue was encountered. I used a small curette to clean out the incision site. I then irrigated the wound copiously and closed it with 3-0 nylon. A sterile dressing was then applied. The patient was then awakened from anesthesia and transferred to the recovery room in stable condition. There were no complications. All needle and sponge counts were correct at the end of the case. ATTESTATION: I attest I was present and scrubbed and performed the critical portions of the procedure myself. POSTOPERATIVE PLAN: Continue on antibiotics per infectious disease.
[2019-10-22] MEDS: Acetaminophen TAB* 325 MG PO SCH ×3 (01:34→17:39)
[2019-10-22] MEDS: Levothyroxine TAB* 175 MCG TAB PO SCH (05:57)
[2019-10-22 06:28] LABS: Hematocrit 30 % (35-47); Hemoglobin 10.4 g/dL (12.0-16.0); Platelet Count 232 10^3/uL (150-450)
[2019-10-22 06:33] LABS: Calcium 9.8 mg/dL (8.6-10.3); Potassium 4.2 mmol/L (3.5-5.0)
[2019-10-22 06:38] LABS: BUN/Creatinine Ratio 20.2 (8-20); EGFR African American 80.6 (>60); EGFR Non-African American 66.6 (>60)
[2019-10-22] MEDS: Carbidopa/Levodop 25/100 MG TAB(*) PO SCH ×3 (08:55→21:43)
[2019-10-22] MEDS: Pramipexole TAB* 0.5 MG PO SCH ×2 (08:56→21:43)
[2019-10-22] MEDS: Gabapentin CAP(*) 300 MG PO SCH (08:56)
[2019-10-22] MEDS: Vitamin THERAPEUTIC TAB PO SCH (08:56)
[2019-10-22] MEDS: Docusate CAP* 100 MG PO SCH ×2 (08:58→21:46)
[2019-10-22] MEDS: Heparin VIAL(*) 5000 UNITS/ML VIAL (FIVE THOUSAND) SUBCUT SCH ×2 (08:58→21:44)
[2019-10-22] MEDS: Magnesium Hydroxide LIQ* 30 ML UDC PO SCH ×2 (08:58→21:46)
[2019-10-22] MEDS: DULoxetine DR CAP* 30 MG CAP.DR PO SCH (08:58)
--- NOTE | 2019-10-22 09:21 | PN ---
Progress Note - Progress Note Date of Service: 10/22/19 SOAP: Subjective: CC: Left LE cellulitis HPI: Ms. Peñaloza is a 73 yo female with PMH significant for Parkinson's disease, hypothyroidism, obesity, and bilateral LE lymphedema; who presented to the hospital with complaints of exposed hardware in the left 1st toe. Denies fever, chills, nausea, vomiting, diarrhea, and left LE foot pain. Reports that she is feeling well and would like to go home today. Objective: Vital Signs - 8 hr 10/22/19 10/22/19 10/22/19 03:26 07:00 08:56 Temperature 98.6 F 99.0 F Pulse Rate 75 79 Respiratory 16 16 18 Rate Blood Pressure 128/50 158/73 (mmHg) O2 Sat by Pulse 96 99 Oximetry Physical Exam: General: NAD, sitting up in a chair Neurological: Alert and Oriented HEENT: Moist MM Cardiovascular: Heart rate regular. Bilateral LE edema Respiratory: Lung sounds clear Abdominal: Bowel sounds present; ABD soft, non tender and non distended Skin: No rash. Surgical DSG to the left foot clean, dry and intact Laboratory Results - last 24 hr 10/22/19 10/22/19 06:09 06:09 Hgb 10.4 L Hct 30 L Plt Count 232 MPV 7.0 L Sodium 138 Potassium 4.2 Chloride 104 Carbon Dioxide 31 Anion Gap 3 BUN 17 Creatinine 0.84 Est GFR ( Amer) 80.6 Est GFR (Non-Af Amer) 66.6 BUN/Creatinine Ratio 20.2 H Glucose 101 H Calcium 9.8 Microbiology 10/18/19 16:52 Aerobic Blood Culture - Preliminary Blood Venous No Growth Day 3 Anaerobic Blood Culture - Preliminary No Growth Day 3 10/18/19 16:52 Aerobic Blood Culture - Preliminary Blood Venous No Growth Day 3 Anaerobic Blood Culture - Preliminary No Growth Day 3 Assessment: 1. Left lower extremity cellulitis with exposed hardware. Concern for acute osteomyelitis, pathology pending. S/P removal of hardware, POD #1. Denies pain. Blood cultures with no growth on day 3. Afebrile and no leukocytosis. 2. Obesity. BMI 38. 3. Bilateral LE lymphedema. Plan: Will plan to discharge on Doxycycline 100 mg PO BID until her appointment at [facility] for [place]. She has an appointment on October 27 at 1030. Will plan on a dose of Dalvance 1,000 mg IV x1 and repeat 1 week later Dalvance 500 mg IV x 1; this will provide 4-6 weeks of ABX coverage. Followup with ID outpatient. Discussed with TINY Sharma.
[2019-10-22] MEDS: Vancomycin(*) 1,000 MG in NS 0.9% 250 ML* 250 ML IV SCH ×2 (12:15→23:09)
--- NOTE | 2019-10-22 14:26 | PN ---
Progress Note - Progress Note Date of Service: 10/22/19 SOAP: Subjective: ]Pt seen at bedside. She feels well without complaints. Denies fever, chills, LLE pain, CP, SOB, dizziness. Objective: []Gen: NAD, appears well LLE: Dressing is c/d/i. Able to wiggle exposed toes. Cap refill less than 2 sec. Vital Signs Temp 98.6 F 10/22/19 11:00 Pulse 71 10/22/19 11:00 Resp 16 10/22/19 11:00 BP 111/55 10/22/19 11:00 Pulse Ox 96 10/22/19 11:00 Intake & Output 10/21/19 10/22/19 10/22/19 18:59 06:59 18:59 Intake Total 300 980 600 Output Total 500 550 700 Balance -200 430 -100 Intake: IV Fluids 300 LR 300 IVPB 260 ABX - VANCOMYCIN 260 Oral 0 720 600 Output: Urine 500 550 700 Other: Estimated Void Large Date of Last Bowel 10/22/2019 Movement # Bowel Movements 1 Estimated Stool Amount Small # Voids 2 Assessment: []LLE cellulitis with exposed hardware POD 1 removal of hardware Plan: - follow up with Dr. Brewster in 10 - 14 days Dressing to remain on and dry. Aspirin 325 qd for DVT prophalaxis Antibiotics per ID.
--- NOTE | 2019-10-22 14:40 | DS ---
Orthopedic Discharge Summary - Discharge Summary Date of Admission:10/18/19 Date of Discharge: 10/22/19 Date of Surgery: 10/21/2019 Attending Orthopedic Provider: Dr. Brewster Pre-operative Diagnosis: Left foot cellulitis with exposed hardware Operative Procedure: Left foot removal of hardware Disposition of Patient:Home Home care vs Outpatient services: [facility] Condition of Patient: Good Pain medication RX at discharge: Tylenol 650 DVT prophylaxis RX at discharge: Aspirin 325 History: RAYMUNDO PENA had prior forefoot surgery and her screw in the hallux became exposed, and she developed a cellulitis. Both operative and non- operative treatment alternatives were reviewed. We proceeded with removal of the screw today. Hospital Course: RAYMUNDO was admitted to [facility] on 10/18/19 she was seen by orthopedics and vanco was started, ID consulted for abx guidance. A dopplar was obtained and was without evidence of lle DVT. On 10/19/2019 the hospitalists team was consulted to optimize the pt for surgery on the . On the patient underwent a left foot removal of hardware without complication followed by a brief recovery in PACU and transfer to the Short Stay Surgical Unit in stable condition. Our hospitalist service, infectious disease, physical therapy and occupational therapy also participated in this patients care. Post-op day 1: patient was alert and in no acute distress. Dressing was clean, dry and intact. sensation intact to light touch distally. Infectious disease was able to set the pt up for Dalvance 1,000 mg IV x1 and repeat 1 week later Dalvance 500 mg IV x 1. She will be discharged on Doxycycline 100 mg bid. Patient was deemed to be medically and orthopedically stable for discharge. Physical therapy goals were met. Home Medications Medication Instructions Recorded Confirmed Type DULoxetine DR CAP* [Cymbalta CAP*] 30 mg PO QAM 05/21/19 10/20/19 History Docusate Sodium [Stool Softener] 100 mg PO QPM 05/21/19 10/20/19 History Gabapentin 300 mg PO QAM 05/21/19 10/20/19 History Pramipexole TAB* [Mirapex TAB*] 0.5 mg PO BID 05/21/19 10/20/19 History celeCOXIB CAP* [CeleBREX CAP*] 100 mg PO QAM 05/21/19 10/20/19 History Carbidopa/Levodop 25/100 MG(*) 1 tab PO TID 10/20/19 10/20/19 History [Sinemet 25/100 TAB(*)] Levothyroxine Sodium 175 mcg PO DAILY 10/20/19 10/20/19 History Sennosides [Senna] 2 tab PO BEDTIME 10/20/19 10/20/19 History Discharge Instructions following Orthopedic Surgery: Activity: * Heel Weight bearing LLE * Continue physical therapy and occupational therapy exercises as shown * If you have elected to have home physical therapy, continue therapy exercises at home. If you have elected outpatient physical therapy, please start therapy as an outpatient right away. Wound care: * Dressing on until follow up with Ortho or ID Call Orthopedic office for: * Increased drainage * Redness * Increased pain * Fever Go to ER with shortness of breath or chest pain. Diet: * Regular diet * Increase fluids and fiber to prevent constipation. * Continue to use stool softeners, call office if no bowel motion within 48 hours. Medications See Home Medication List in your packet for medications that you should take after discharge. DVT Prophylaxis: Aspirin Dosin mg twice a day Pain Control: Tylenol 650 every 4 - 6 hours as needed for pain. Antibiotics Doxycycline 100 mg to be taken every 12 hours until Fridayvance to be administered on 10/27/2019 at [facility] then again 1 week later. FOLLOW UP: Follow up with Dr. Brewster Within 10 - 14 days, call for appointment Please call our office with any questions or concerns ([phone])
[2019-10-22] MEDS ORDERED: DOXYcycline CAP(*) 100 MG PO ONE (19:00)
[2019-10-23] MEDS: Acetaminophen TAB* 325 MG PO SCH ×2 (01:30→10:03)
[2019-10-23] MEDS: Levothyroxine TAB* 175 MCG TAB PO SCH (05:52)
[2019-10-23 07:19] VITALS: BP 148/53
[2019-10-23] MEDS: Vitamin THERAPEUTIC TAB PO SCH (09:55)
[2019-10-23] MEDS: Gabapentin CAP(*) 300 MG PO SCH (09:55)
[2019-10-23] MEDS: Docusate CAP* 100 MG PO SCH (09:55)
[2019-10-23] MEDS: Pramipexole TAB* 0.5 MG PO SCH (09:56)
[2019-10-23] MEDS: DULoxetine DR CAP* 30 MG CAP.DR PO SCH (09:56)
[2019-10-23] MEDS: Heparin VIAL(*) 5000 UNITS/ML VIAL (FIVE THOUSAND) SUBCUT SCH (09:57)
--- NOTE | 2019-10-23 10:05 | PN ---
Progress Note - Progress Note Date of Service: 10/23/19 SOAP: Subjective: Subjective: ]Pt seen at bedside. She was set up to discharge yesterday but was unable to get a ride. She is ready today and has a ride. She feels well without complaints. Denies fever, chills, LLE pain, CP, SOB, dizziness. Objective: []Gen: NAD, appears well LLE: Dressing is c/d/i. Able to wiggle exposed toes. Cap refill less than 2 sec. Vital Signs Assessment: []LLE cellulitis with exposed hardware POD 2 removal of hardware Plan: - follow up with Dr. Brewster in 10 - 14 days Dressing to remain on and dry. Aspirin 325 qd for DVT prophalaxis Antibiotics per ID. Vital Signs Temp Pulse Resp BP Pulse Ox 97.9 F 77 16 148/53 100 10/23/19 07:18 10/23/19 07:18 10/23/19 09:55 10/23/19 07:18 10/23/19 07:18 Laboratory Last Values WBC 5.7 10^3/uL (3.5-10.8) 10/20/19 06:35 RBC 3.13 10^6 /uL (3.70-4.87) L 10/20/19 06:35 Hgb 10.4 g/dL (12.0-16.0) L 10/22/19 06:09 Hct 30 % (35-47) L 10/22/19 06:09 MCV 94 fL (80-97) 10/20/19 06:35 MCH 33 pg (27-31) H 10/20/19 06:35 MCHC 35 g/dL (31-36) 10/20/19 06:35 RDW 14 % (10-15) 10/20/19 06:35 Plt Count 232 10^3/uL (150-450) 10/22/19 06:09 MPV 7.0 fL (7.4-10.4) L 10/22/19 06:09 Neut % (Auto) 64.6 % 10/20/19 06:35 Lymph % (Auto) 22.9 % 10/20/19 06:35 Will % (Auto) 7.7 % 10/20/19 06:35 Eos % (Auto) 4.0 % 10/20/19 06:35 Baso % (Auto) 0.8 % 10/20/19 06:35 Absolute Neuts (auto) 3.7 10^3/ul (1.5-7.7) 10/20/19 06:35 Absolute Lymphs (auto) 1.3 10^3/ul (1.0-4.8) 10/20/19 06:35 Absolute Monos (auto) 0.4 10^3/ul (0-0.8) 10/20/19 06:35 Absolute Eos (auto) 0.2 10^3/ul (0-0.6) 10/20/19 06:35 Absolute Basos (auto) 0.0 10^3/ul (0-0.2) 10/20/19 06:35 Absolute Nucleated RBC 0.0 10^3/ul 10/20/19 06:35 Nucleated RBC % 0.0 10/20/19 06:35 ESR 29 mm/Hr (0-29) 10/18/19 16:58 INR (Anticoag Therapy) 1.00 (0.82-1.09) 10/18/19 16:58 Sodium 138 mmol/L (135-145) 10/22/19 06:09 Potassium 4.2 mmol/L (3.5-5.0) 10/22/19 06:09 Chloride 104 mmol/L (101-111) 10/22/19 06:09 Carbon Dioxide 31 mmol/L (22-32) 10/22/19 06:09 Anion Gap 3 mmol/L (2-11) 10/22/19 06:09 BUN 17 mg/dL (6-24) 10/22/19 06:09 Creatinine 0.84 mg/dL (0.51-0.95) 10/22/19 06:09 Est GFR ( Amer) 80.6 (>60) 10/22/19 06:09 Est GFR (Non-Af Amer) 66.6 (>60) 10/22/19 06:09 BUN/Creatinine Ratio 20.2 (8-20) H 10/22/19 06:09 Glucose 101 mg/dL (70-100) H 10/22/19 06:09 Calcium 9.8 mg/dL (8.6-10.3) 01/31/20 06:09 C-Reactive Protein 7.91 mg/L (<8.01) 10/20/19 06:35 Vancomycin Trough 22.3 mcg/mL 10/21/19 06:29
[2019-10-23] MEDS: Carbidopa/Levodop 25/100 MG TAB(*) PO SCH (10:06)
[2019-10-23] MEDS: Magnesium Hydroxide LIQ* 30 ML UDC PO SCH (10:07)
== END 2019-10-23 11:15 | disposition home health service (06) | DRG 497 ==
LOC: SSU 16:12
PROVIDERS: ADMIT Orthopaedic Surgery; ATTEND Orthopaedic Surgery
PROC: 0QPR04Z Removal of Internal Fixation Device from Left Toe Phalanx, Open Approach (ICD-10-PCS; principal; 2019-10-21 16:00)
DX: T84.629A Infection and inflammatory reaction due to internal fixation device of unspecified bone of leg, initial encounter (principal); L03.032 Cellulitis of left toe; G20 Parkinson's disease; E89.0 Postprocedural hypothyroidism; E66.9 Obesity, unspecified; I89.0 Lymphedema, not elsewhere classified; Y79.3 Surgical instruments, materials and orthopedic devices (including sutures) associated with adverse incidents; Z88.5 Allergy status to narcotic agent; Z68.38 Body mass index [BMI] 38.0-38.9, adult; Z88.8 Allergy status to other drugs, medicaments and biological substances; Z91.040 Latex allergy status; Z79.890 Hormone replacement therapy; Z79.82 Long term (current) use of aspirin; Z87.891 Personal history of nicotine dependence; Y92.9 Unspecified place or not applicable
CPT/HCPCS: 36415; 71046; 80048; 80202; 85014; 85018; 85025; 85049; 85610; 85652; 86140; 87040; 88300; 93005; A9270-GY; J1644; J2250; J2704; J3010; J3370; J3490